=== PATIENT | female | born 1980 | race Caucasian/White ===

== ENCOUNTER 2025-11-17 20:34 | Emergency (ER) | payer OTHER ==
[2025-11-17] MEDS ORDERED: Albuterol 2.5 MG (3 mL) NEB ONE (20:54)
[2025-11-17] MEDS ORDERED: Dexamethasone 10 MG/ML VIAL ONE (21:05)
[2025-11-17 21:12] LABS: Actual Bicarbonate (HCO3a) 21.3 mEq/L (22-28); Analyzer IN Cardio CS ER; Base Excess (BEa) -0.5 mEq/L (-2.0 to +3.0); CO2 Tension 27.8 mmHg (35.0-45.0); Calcium, Ionized (arterial) 1.12 mmol/L (1.12-1.30); Hematocrit-ABG 40 % (36.0-47.0); Hemoglobin (Hb) 13.7 g/dL (12.0-16.0); O2 Tension (PaO2), arterial 246.7 mmHg (80.0-100.0); Potassium - ABG Lab 3.65 mmol/L (3.70-5.30); Puncture Site Left Radial artery; pH, Arterial 7.503 (7.35-7.45)
[2025-11-17 21:29] LABS: #Basophils Less than 0.03 10x3/uL (0.0-0.2); #Eosinophils Less than 0.03 10x3/uL (0.0-0.5); #Monocytes 0.59 10x3/uL (0.0-1.1); #Neutrophils 3.57 10x3/uL (1.5-8.4); %Basophils 0.0 % (0.0-2.0); %Eosinophils 0.2 % (0.0-6.0); %Lymphocytes 27.8 % (18.0-47.0); %Monocytes 10.2 % (0.0-10.0); %Neutrophils 61.5 % (40.0-75.0); Hematocrit 36.1 % (34.9-44.5); Hemoglobin 12.7 g/dL (12.0-15.5); Mean Corpuscular Hemoglobin 31.3 pg (27.0-33.0); Mean Corpuscular Volume 88.9 fL (81.6-98.3); Platelet Count 211 10x3/uL (150-450); Red Blood Cell (RBC) Count 4.06 10x6/uL (3.90-5.03); White Blood Cell (WBC) Count 5.80 10x3/uL (3.5-10.5)
[2025-11-17 21:41] LABS: ALT (SGPT) 12 U/L (Less than 34); AST (SGOT) 24 U/L (11-34); Albumin 3.8 g/dL (3.1-4.5); Alkaline Phosphatase 64 U/L (40-110); Anion Gap 15 mmol/L (10-20); BUN (Urea Nitrogen) 17 mg/dL (7.0-18.7); Bilirubin, Total 0.2 mg/dL (0.3-1.2); Calc. Creatinine Clearance 0 mL/min (70-130); Calcium 8.8 mg/dL (7.8-10.44); Carbon Dioxide 19 mmol/L (22-29); Chloride 108 mmol/L (98-107); Globulin 3.0 g/dL (2.4-3.5); Glucose 82 mg/dL (70-105); Lipase 40 U/L (8-78); Magnesium 1.8 mg/dL (1.6-2.6); Potassium 3.7 mmol/L (3.5-5.1); Sodium 138 mmol/L (136-145)
[2025-11-17 21:47] LABS: Troponin I 0.015 ng/mL (< 0.028)
[2025-11-17 22:25] LABS: Glucose, Urine (Dipstick) Normal (Negative); Leukocyte 25 (Negative); Protein, Urine (Dipstick) 15 mg/dl (Neg-Trace); Specific Gravity, Urine 1.020 (1.005-1.030)
[2025-11-17 22:33] LABS: Cocaine Metabolite Screen Negative (Negative); THC/Cannabinoid Screen Negative (Negative); Tricyclic Screen Negative (Negative)
[2025-11-17 22:48] LABS: Bacteria/HPF 2+ HPF (None Seen); CAUTI Indications for Culture Dysuria,urgency,freq; RBC/HPF 0-3 HPF (0-3)
[2025-11-17 22:49] LABS: Urine Culture Reflex No No
== END 2025-11-18 00:55 | disposition home or self-care (01) ==
LOC: CSHERS 20:34
DX: J10.1 Influenza due to other identified influenza virus with other respiratory manifestations (principal); R06.02 Shortness of breath; N39.0 Urinary tract infection, site not specified; E66.9 Obesity, unspecified
CPT/HCPCS: 36415; 36600; 71045; 71275; 80053; 80306; 81001; 82805; 83690; 83735; 83880; 84484; 85025; 85379; 87428; 93005; 94644; 96374; J1100; J7611